=== PATIENT | female | born 1975 | race Two or more races ===

== ENCOUNTER 2022-12-18 02:50 | Emergency (ER) | payer BC ==
[~2022-12-18] VITALS: Ht 154.9 cm; Wt 63.5 kg
[2022-12-18] MEDS ORDERED: [UNRECOGNIZED DRUG - OTHER] PO (03:16)
[2022-12-18 04:07] LABS: HEMATOCRIT 34.2 % (36.0-45.00); HEMOGLOBIN 11.7 g/dL (12.0-15.00); MEAN CELL VOLUME 89.9 fL (80.00-100.00); MEAN CORPUSCULAR HEMOGLOBIN 30.7 pg (27.00-32.0); MEAN CORPUSCULAR HGB CONC 34.2 g/dl (32.0-36.0); PLATELET COUNT 324 K/uL (150-450); RED CELL DISTRIBUTION WIDTH 17.1 % (11.5-14.5)
[2022-12-18 04:26] LABS: INR 1.07; PARTIAL THROMBOPLASTIN TIME 30.2 SECONDS (22.0-34.0); PROTHROMBIN TIME 11.2 SECONDS (9.0-11.5)
[2022-12-18 04:30] LABS: ALBUMIN 3.9 gm/dL (3.4-5.0); BILIRUBIN TOTAL 0.45 mg/dL (0.3-1.2); BILIRUBIN,CONJUGATED 0.15 mg/dL (0.0-0.2); BILIRUBIN,UNCONJUGATED 0.3 mg/dL (0.0-0.6); CALCIUM 9.2 mg/dL (8.5-10.1); CREATININE SERUM 0.55 mg/dL (0.55-1.02); GFR 118.99; POTASSIUM 3.53 mEq/L (3.5-5.1); TOTAL PROTEIN 7.9 gm/dL (6.4-8.2)
[2022-12-18 07:50] LABS: PH,URINE 6.5 (5.0-8.0); URINE APPEARANCE Clear; URINE BILIRRUBIN Negative (NEGATIVE); URINE BLOOD Negative; URINE COLOR Yellow; URINE GLUCOSE Negative (NEGATIVE); URINE LEUKOCYTE Trace; URINE NITRATE Negative; URINE PROTEIN Trace (NEGATIVE); URINE UROBILINOGEN 0.2 E.U./dl
[2022-12-18 07:55] LABS: URINE BACTERIA 118.4 uL (0.0-1933); URINE EPITHELIAL CELLS 11.4 uL (0.0-38.8); URINE RBC 6.8 uL (0.0-20.8); URINE WBC 20.8 uL (0.0-23.2)
== END 2022-12-18 10:03 | disposition home or self-care (01) ==
LOC: ER 02:50 → EDBD 03:51 → ER 10:03
PROVIDERS: General Practice
DX: R10.84 Generalized abdominal pain (principal); K59.00 Constipation, unspecified